=== PATIENT | female | born 1960 | race Caucasian/White ===

== ENCOUNTER 2018-10-20 10:23 | Emergency (ER) | payer OTHER ==
[~2018-10-20] VITALS: Ht 167.6 cm; Wt 66.8 kg
[2018-10-20 11:20] LABS: BASOPHILS % (AUTO) 0.1 % (0-1); EOSINOPHILS % (AUTO) 0.1 % (0-6); HEMATOCRIT 42.3 % (35.0-45.0); HEMOGLOBIN 14.3 g/dl (12.0-16.0); LYMPHOCYTES # (AUTO) 0.6 X10'3 (1.1-4.8); LYMPHOCYTES % (AUTO) 6.9 % (21-51); MEAN CORPUSCULAR HEMOGLOBIN 31.5 PG (27.0-31.0); MEAN CORPUSCULAR HGB CONC 33.9 g/dL (33.0-36.5); MEAN PLATELET VOLUME 8.4 FL (7.4-10.4); MONOCYTES # (AUTO) 0.3 X10'3 (0-0.9); MONOCYTES % (AUTO) 3.8 % (2-12); NEUTROPHILS # (AUTO) 7.5 X10'3 (1.8-7.7); NEUTROPHILS % (AUTO) 89.1 % (42-75); PLATELET COUNT 185 X10'3 (140-440); RED BLOOD COUNT 4.55 X10'6 (4.20-5.60); RED CELL DISTRIBUTION WIDTH 12.4 % (11.5-14.5); WHITE BLOOD COUNT 8.4 X10'3 (4.5-11.0)
[2018-10-20 11:29] LABS: ALANINE AMINOTRANSFERASE 28 U/L (12-78); ALBUMIN 4.7 G/DL (3.4-5.0); ALBUMIN/GLOBULIN RATIO 1.2 (1.1-1.5); ALKALINE PHOSPHATASE 63 IU/L (46-116); AMYLASE 58 U/L (25-115); ANION GAP 11 (8-16); ASPARTATE AMINO TRANSFERASE 33 U/L (10-37); BILIRUBIN,TOTAL 0.6 MG/DL (0.1-1.0); BLOOD UREA NITROGEN 15 MG/DL (7-18); BUN/CREATININE RATIO 22.4 (6.6-38.0); CALCIUM 9.2 MG/DL (8.5-10.1); CHLORIDE 96 MMOL/L (99-107); CREATININE 0.67 MG/DL (0.40-0.90); GLUCOSE 145 MG/DL (70-104); LIPASE 100 U/L (73-393); SODIUM 136 MMOL/L (135-145); TOTAL CARBON DIOXIDE 28.7 MMOL/L (24-32); TOTAL PROTEIN 8.7 G/DL (6.4-8.2); eGFR 90 ML/MIN
[2018-10-20] MEDS ORDERED: potassium 10mEq/100ml NS w/LIDOcaine (10mg/bag) IV ONE (12:20)
[2018-10-20] MEDS ORDERED: pantoprazole 40 MG vial IV ONE (12:20)
[2018-10-20] MEDS ORDERED: ketorolac trometh. 30mg/ml inj. IV ONE (12:20)
[2018-10-20] MEDS ORDERED: orphenadrine citrate 60mg/2ml inj. IM ONE (12:20)
[2018-10-20] MEDS ORDERED: normal saline 1000ml 1,000 ML IV ONE (12:20)
[2018-10-20] MEDS ORDERED: ondansetron/PF 4mg/2ml inj IV ONE (12:20)
[2018-10-20] MEDS ORDERED: proCHLORperazine 10 MG/2 ml inj IV ONE (12:20)
[2018-10-20 12:22] LABS: CLARITY,URINE CLOUDY (Clear); COLOR,URINE YELLOW (Yellow); GLUCOSE, URINE NEGATIVE (Neg); KETONES,URINE NEGATIVE (Neg); LEUKOCYTE ESTERASE ,URINE NEGATIVE (Neg); NITRITES, URINE NEGATIVE (Neg); OCCULT BLOOD,URINE TRACE-INTACT (Neg); PROTEIN,URINE 100 mg/dl (Neg); UROBILINOGEN,URINE 0.2 E.U/dL (0.2-1.0)
[2018-10-20] MEDS ORDERED: potassium Cl 10 mEq/100mL bag IV ONE (12:25)
[2018-10-20 12:26] LABS: UA COLLECTION TYPE CLN CATCH MIDSTREAM
[2018-10-20 12:29] LABS: AMORPHOUS PHOSPHATES 4+; BACTERIA,URINE NONE SEEN /HPF (Neg); MUCUS STRANDS FEW /LPF (Neg); SQUAMOUS EPITHELIAL CELL,UR FEW /LPF (FEW); WBC,URINE 0-4 /HPF (0-4)
[2018-10-20 12:30] LABS: URINE HCG NEGATIVE (NEG)
[2018-10-20] MEDS ORDERED: PRED20TA PO (12:35)
[2018-10-20] MEDS ORDERED: ACET-812 PO (12:35)
[2018-10-20] MEDS ORDERED: IBUP-1984 PO (12:35)
[2018-10-20] MEDS ORDERED: acetaminophen 325mg tablet PO ONE (12:35)
[2018-10-20] MEDS ORDERED: predniSONE 20 mg tablet PO ONE (12:35)
[2018-10-20] MEDS ORDERED: ketorolac trometh inj. 60 MG/2 ML VIAL IM ONE (12:35)
[2018-10-20 12:46] LABS: TROPONIN I < 0.04 NG/ML (0.0-0.05)
[2018-10-20] MEDS ORDERED: morphine 4 MG/ML inj SYRINge IV ONE (13:00)
[2018-10-20] MEDS ORDERED: potassium Cl 20 mEq SR tablet PO STA (13:24)
[2018-10-20] MEDS ORDERED: famotidine 20mg tablet PO ONE (13:25)
[2018-10-20] MEDS ORDERED: POTA20TA19 PO (13:29)
[2018-10-20] MEDS ORDERED: PANT-47 PO (13:29)
[2018-10-20] MEDS ORDERED: ONDA8TAB6 PO (13:29)
[2018-10-20 14:48] VITALS: BP 160/100
== END 2018-10-20 14:49 | disposition home or self-care (01) ==
LOC: ER 10:24
DX: E87.6 Hypokalemia (principal); Z88.0 Allergy status to penicillin; Z79.899 Other long term (current) drug therapy
CPT/HCPCS: 36415; 80053; 81001; 81025; 82150; 83690; 84145; 84484; 85025; 85610; 96365; 96372; 96375; 99283; C9113; J0780; J1885; J2270; J2360; J2405; J3480; J7030